=== PATIENT | male | born 1985 | race Native Hawaiian/Other Pacific Islander ===

== ENCOUNTER 2019-11-02 17:07 | Emergency (ER) | payer OTHER ==
[2019-11-02 17:25] VITALS: BP 134/78
--- NOTE | 2019-11-02 18:58 | Event Note ---
ED Screening Note Date of service: 11/02/19 Time: 18:57 ED Screening Note: Patient complains of left posterior rib pain after a fall 3 weeks ago from a ladder while at work This initial assessment/diagnostic orders/clinical plan/treatment(s) is/are subject to change based on patients health status, clinical progression and re- assessment by fellow clinical providers in the ED. Further treatment and workup at subsequent clinical providers discretion. Patient/guardian urged not to elope from the ED as their condition may be serious if not clinically assessed and managed. Initial orders include: X-ray
[2019-11-02] MEDS ORDERED: IBUPROFEN 600 MG TAB PO ONE (19:40)
[2019-11-02] MEDS ORDERED: ACETAMINOPHEN 500 MG TAB PO ONE (19:40)
--- NOTE | 2019-11-02 19:56 | XRay Report ---
LEFT RIBS WITH CHEST X-RAY 3 VIEWS INDICATION / CLINICAL INFORMATION: upper posterior/lateral pain after fall from ladde. COMPARISON: None available. FINDINGS: No significant skeletal abnormality. No evidence of a left-sided pneumothorax Signer Name: Carlton Heck MD FACR Signed: 11/02/2019 7:52 PM Workstation Name: [id number]
--- NOTE | 2019-11-02 21:07 | Emergency Department Report ---
ED General Adult HPI - General Chief complaint: Fall Stated complaint: RIB CAGE PAIN Time Seen by Provider: 11/02/19 18:55 Source: alligator hunter Mode of arrival: Ambulatory Limitations: Language Barrier - History of Present Illness Initial comments: Patient is a 34-year-old male with no past medical history presents to the ED with complaint of acute onset persistent severe left lateral rib pain after he fell off a ladder at work 3 weeks ago. Patient states that he has been taking [id number]-[id number] medication with no relief. Patient states that the pain has been persistent and especially with movement, deep inhalation, or palpation of the left lateral rib cage. Patient denies dizziness, syncope, hemoptysis, shortness of breath, chest pain, dizziness, cough, nausea and vomiting or fever and chills. Patient also denies head or neck injuries and back pain. MD Complaint: left rib pain -: Sudden, week(s) (3) Location: chest (left lateral rib cage) Radiation: non-radiation Severity scale (0 -10): 5 Quality: aching, sharp Consistency: constant Improves with: none Worsens with: movement Associated Symptoms: denies: confusion, chest pain, cough, diaphoresis, fever/chills, headaches, loss of appetite, malaise, nausea/vomiting, seizure, shortness of breath, syncope, weakness Treatments Prior to Arrival: none - Related Data Previous Rx's Medication Instructions Recorded Last Taken Type Cyclobenzaprine [Flexeril] 10 mg PO Q8H PRN #21 tablet 11/02/19 Unknown Rx Naproxen 500 mg PO Q12H PRN #30 tablet 11/02/19 Unknown Rx Allergies Allergy/AdvReac Type Severity Reaction Status Date / Time No Known Allergies Allergy Unverified 11/02/19 17:17 ED Review of Systems ROS: Stated complaint: RIB CAGE PAIN Other details as noted in HPI Constitutional: denies: chills, fever Eyes: denies: eye pain, eye discharge, vision change ENT: denies: ear pain, throat pain Respiratory: denies: cough, shortness of breath, wheezing Cardiovascular: chest pain (left lateral rib pain). denies: palpitations Endocrine: no symptoms reported Gastrointestinal: denies: abdominal pain, nausea, diarrhea Genitourinary: denies: urgency, dysuria Musculoskeletal: denies: back pain, joint swelling, arthralgia Skin: denies: rash, lesions Neurological: denies: headache, weakness, paresthesias Psychiatric: denies: anxiety, depression Hematological/Lymphatic: denies: easy bleeding, easy bruising ED Past Medical Hx - Past Medical History Previous Medical History?: No - Surgical History Past Surgical History?: No - Social History Smoking Status: Never Smoker Substance Use Type: None - Medications Home Medications: Home Medications Medication Instructions Recorded Confirmed Last Taken Type Cyclobenzaprine [Flexeril] 10 mg PO Q8H PRN #21 tablet 11/02/19 Unknown Rx Naproxen 500 mg PO Q12H PRN #30 tablet 11/02/19 Unknown Rx ED Physical Exam - General Limitations: Language Barrier General appearance: alert, in no apparent distress - Head Head exam: Present: atraumatic, normocephalic, normal inspection - Eye Eye exam: Present: normal appearance, PERRL, EOMI Pupils: Present: normal accommodation - ENT ENT exam: Present: normal exam, normal orophraynx, mucous membranes moist, TM's normal bilaterally, normal external ear exam - Neck Neck exam: Present: normal inspection, full ROM. Absent: tenderness - Respiratory Respiratory exam: Present: normal lung sounds bilaterally, chest wall tenderness (Palpable reproducible left lateral rib tenderness). Absent: respiratory distress, wheezes, rales, rhonchi, stridor, accessory muscle use - Cardiovascular Cardiovascular Exam: Present: regular rate, normal rhythm, normal heart sounds. Absent: systolic murmur, diastolic murmur, rubs, gallop - GI/Abdominal GI/Abdominal exam: Present: soft, normal bowel sounds. Absent: tenderness, guarding, rebound, hyperactive bowel sounds, hypoactive bowel sounds - Extremities Exam Extremities exam: Present: normal inspection, full ROM, normal capillary refill - Back Exam Back exam: Present: normal inspection, full ROM. Absent: tenderness, CVA tenderness (R), CVA tenderness (L), muscle spasm, paraspinal tenderness - Neurological Exam Neurological exam: Present: alert, oriented X3, CN II-XII intact, normal gait, reflexes normal - Psychiatric Psychiatric exam: Present: normal affect, normal mood - Skin Skin exam: Present: warm, dry, intact, normal color. Absent: rash ED Course Vital Signs 11/02/19 17:24 Temperature 98 F Pulse Rate 84 Respiratory 18 Rate Blood Pressure 134/78 [Right] O2 Sat by Pulse 100 Oximetry ED Medical Decision Making - Radiology Data Radiology results: report reviewed, image reviewed Findings [facility] [address] [place] [address] XRay Report Signed Patient: ABRAHAM ROSSI MR#: [id number] : 1985 Acct:[id number] Age/Sex: 34 / M ADM Date: 11/02/19 Loc: ED Attending Dr: Ordering Physician: RK GUSMAN Date of Service: 11/02/19 Procedure(s): XR ribs UNI w PA chest 3+V LT Accession Number(s): [id number] cc: RK GUSMAN Fluoro Time In Minutes: LEFT RIBS WITH CHEST X-RAY 3 VIEWS INDICATION / CLINICAL INFORMATION: upper posterior/lateral pain after fall from ladde. COMPARISON: None available. FINDINGS: No significant skeletal abnormality. No evidence of a left-sided pneumothorax Signer Name: Carlton Heck MD FACR Signed: 11/02/2019 7:52 PM Workstation Name: [id number] Transcribed By: MS Dictated By: Carlton Heck MD Electronically Authenticated By: Carlton Heck MD Signed Date/Time: 11/02/191951 DD/ 50 TD/TT: - Medical Decision Making This is a 34-year-old male with no past medical history presents to the ED with complaint of acute onset persistent severe left lateral rib pain after he fell off a ladder at work 3 weeks ago. Patient states that he has been taking pbpb-bbt-[id number] medication with no relief. Patient states that the pain has been persistent and especially with movement, deep inhalation, or palpation of the left lateral rib cage. In the ED, patient is alert and oriented x3 and is not in distress. Patient was treated for pain in the ED and left rib x-ray with chest x-ray showed no acute rib fractures, pneumothorax, pleural effusion or any cardiopulmonary abnormalities. On reevaluation, patient's pain is well controlled medication. Patient will discharge home on pain medications and advised to follow-up with his primary care physician in 5 to 7 days for reevaluation or return to the ED immediately if symptoms get worse. - Differential Diagnosis rib fractures; pneumothorax; pleural effusion; chest contusion Critical care attestation.: If time is entered above; I have spent that time in minutes in the direct care of this critically ill patient, excluding procedure time. ED Disposition Clinical Impression: Contusion of rib on left side Qualifiers: Encounter type: initial encounter Qualified Code(s): S20.212A - Contusion of left front wall of thorax, initial encounter Contusion of chest wall Qualifiers: Encounter type: initial encounter Laterality: left Qualified Code(s): S20.212A - Contusion of left front wall of thorax, initial encounter Disposition: TO HOME OR SELFCARE Is pt being admited?: No Does the pt Need Aspirin: No Condition: Stable Instructions: Thoracic Pain (ED), Pulmonary Contusion (ED) Additional Instructions: The x-ray showed no acute rib fractures of pleural effusion or pneumothorax. Therefore take pain medications as needed with food, drink plenty of fluids and follow-up with your primary care physician in 5 to 7 days for reevaluation. Return to the ED immediately if symptoms get worse. Prescriptions: Cyclobenzaprine [Flexeril] 10 mg PO Q8H PRN #21 tablet PRN Reason: Muscle Spasm Naproxen 500 mg PO Q12H PRN #30 tablet PRN Reason: Pain , Severe (7-10) Referrals: [facility] [Provider Group] - 3-5 Days Time of Disposition: 21:08 Print Language: ALBANIAN
== END 2019-11-02 21:15 | disposition home or self-care (01) ==
LOC: ED 17:07
DX: S20.212A Contusion of left front wall of thorax, initial encounter (principal); Z79.899 Other long term (current) drug therapy; W11.XXXA Fall on and from ladder, initial encounter; Y93.89 Activity, other specified; Y92.89 Other specified places as the place of occurrence of the external cause; Y99.8 Other external cause status

== ENCOUNTER 2019-11-12 04:41 | Emergency (ER) | payer SELFPAY ==
[2019-11-12 05:32] LABS: Basophils # (Auto) 0.1 K/mm3 (0.0-0.1); Basophils % (Auto) 0.5 % (0.0-1.8); Eosinophils # (Auto) 0.2 K/mm3 (0.0-0.4); Hematocrit 46.1 % (35.5-45.6); Hemoglobin 15.9 gm/dl (11.8-15.2); Lymphocytes # (Auto) 2.9 K/mm3 (1.2-5.4); Lymphocytes % (Auto) 18.5 % (13.4-35.0); Mean Corpuscular HGB Conc 35 % (32-34); Mean Corpuscular Volume 91 fl (84-94); Monocytes # (Auto) 1.2 K/mm3 (0.0-0.8); Monocytes % (Auto) 7.9 % (0.0-7.3); Platelet Count 321 K/mm3 (140-440); Red Cell Distribution Width 13.8 % (13.2-15.2)
[2019-11-12 05:34] LABS: Alanine Aminotransferase 37 units/L (7-56); Albumin 4.7 g/dL (3.9-5); BUN/Creatinine Ratio 19; Blood Urea Nitrogen 15 mg/dL (9-20); Hemolysis Index 13
[2019-11-12 07:12] LABS: Bacteria,Urine 1+ /HPF (Negative); Bilirubin,Urine NEG (Negative); Blood,Urine NEG (Negative); Color,Urine Yellow (Yellow); Mucus,Urine FEW /HPF; Protein,Urine <15 mg/dL mg/dL (Negative); Urobilinogen,Urine < 2.0 mg/dL (<2.0)
--- NOTE | 2019-11-12 09:23 | Emergency Department Report ---
ED General Adult HPI - General Chief complaint: Abdominal Pain Stated complaint: ABDOMINAL PAIN PUI?: No Time Seen by Provider: 11/12/19 08:30 Source: patient, RN notes reviewed, old records reviewed Mode of arrival: Ambulatory Limitations: No Limitations - History of Present Illness Initial comments: The patient is a 34-year-old gentleman who is not known to myself previously, recently placed on Naprosyn for musculoskeletal pain/injury, presenting to the ER with a complaint of epigastric and bilateral upper quadrant pain with mild nausea. Symptoms present for the past day. He describes the pain is aching, burning and sharp. It increases with palpation, position, decreases with rest. No headache, neck pain, chest pain, exertional shortness of breath. No lower abdominal pain, no testicular pain, no urinary symptoms. No extremity weakness and or numbness. His symptoms were improved in the emergency room with supportive care and fluids. -: days(s) Location: abdomen Radiation: non-radiation Quality: other Consistency: other Improves with: other Worsens with: other - Related Data Previous Rx's Medication Instructions Recorded Last Taken Type Acetaminophen [Non-Aspirin Extra 500 mg PO Q6HR PRN #30 tablet 11/12/19 Unknown Rx Strength] Ondansetron [Zofran Odt] 4 mg PO Q8HR PRN #20 tab.rapdis 11/12/19 Unknown Rx Pantoprazole [Protonix TAB] 20 mg PO QDAY #30 tablet. 11/12/19 Unknown Rx Allergies Allergy/AdvReac Type Severity Reaction Status Date / Time No Known Allergies Allergy Unverified 11/02/19 17:17 ED Review of Systems ROS: Stated complaint: ABDOMINAL PAIN Other details as noted in HPI Constitutional: denies: fever, malaise Eyes: denies: eye discharge ENT: denies: congestion Respiratory: denies: shortness of breath Cardiovascular: denies: chest pain Gastrointestinal: abdominal pain, nausea. denies: vomiting, diarrhea, constipation, hematemesis, melena, hematochezia Genitourinary: denies: urgency, dysuria, testicular pain Musculoskeletal: denies: myalgia Neurological: denies: weakness Hematological/Lymphatic: denies: easy bleeding ED Past Medical Hx - Past Medical History Previous Medical History?: No - Surgical History Past Surgical History?: No - Social History Smoking Status: Never Smoker Substance Use Type: Alcohol - Medications Home Medications: Home Medications Medication Instructions Recorded Confirmed Last Taken Type Acetaminophen [Non-Aspirin Extra 500 mg PO Q6HR PRN #30 tablet 11/12/19 Unknown Rx Strength] Ondansetron [Zofran Odt] 4 mg PO Q8HR PRN #20 tab.rapsasha 11/12/19 Unknown Rx Pantoprazole [Protonix TAB] 20 mg PO QDAY #30 tablet. 11/12/19 Unknown Rx ED Physical Exam - General Limitations: No Limitations General appearance: alert, in no apparent distress - Head Head exam: Present: atraumatic, normocephalic - Eye Eye exam: Present: normal appearance, EOMI. Absent: nystagmus - ENT ENT exam: Present: normal exam, normal orophraynx, mucous membranes moist, normal external ear exam - Neck Neck exam: Present: normal inspection, full ROM. Absent: tenderness, meningismus - Respiratory Respiratory exam: Present: normal lung sounds bilaterally. Absent: respiratory distress - Cardiovascular Cardiovascular Exam: Present: regular rate, normal rhythm, normal heart sounds. Absent: bradycardia, tachycardia, irregular rhythm, systolic murmur, diastolic murmur, rubs, gallop - GI/Abdominal GI/Abdominal exam: Present: soft, tenderness, normal bowel sounds, other (There is epigastric and bilateral upper quadrant tenderness. There is a negative Clay sign. There is no right lower quadrant tenderness. There is a negative Rovsing sign there is a negative Clay sign,). Absent: distended, guarding, rebound, rigid, pulsatile mass - Rectal Rectal exam: Present: deferred - Extremities Exam Extremities exam: Present: normal inspection, full ROM, other (2+ pulses noted in the bilateral upper and lower extremities. There is no palpable cord. negative Homans sign. Muscular compartments are soft. The pelvis is stable.). Absent: pedal edema, calf tenderness - Back Exam Back exam: Present: normal inspection, full ROM. Absent: tenderness, CVA tenderness (R), CVA tenderness (L), paraspinal tenderness, vertebral tenderness - Neurological Exam Neurological exam: Present: alert, other (No facial droop. Tongue midline. Extraocular movements intact bilaterally. Facial sensation intact to light touch in V1, V2, V3 distribution bilaterally. 5 and a 5 strength in 4 extremities. Sensation intact to light touch in 4 extremities.). Absent: motor sensory deficit - Psychiatric Psychiatric exam: Present: anxious - Skin Skin exam: Present: warm, dry, intact, normal color. Absent: rash ED Course Vital Signs 11/12/19 04:45 Temperature 98.2 F Pulse Rate 77 Respiratory 20 Rate Blood Pressure 173/115 O2 Sat by Pulse 98 Oximetry ED Medical Decision Making - Lab Data Result diagrams: 11/12/19 05:01 11/12/19 05:01 Vital Signs 11/12/19 04:45 Temperature 98.2 F Pulse Rate 77 Respiratory 20 Rate Blood Pressure 173/115 O2 Sat by Pulse 98 Oximetry Lab Results 11/12/19 11/12/19 11/12/19 Range/Units 05:01 05:01 06:52 WBC 15.7 H (4.5-11.0) K/mm3 RBC 5.10 H (3.65-5.03) M/mm3 Hgb 15.9 H (11.8-15.2) gm/dl Hct 46.1 H (35.5-45.6) % MCV 91 (84-94) fl MCH 31 (28-32) pg MCHC 35 H (32-34) % RDW 13.8 (13.2-15.2) % Plt Count 321 (140-440) K/mm3 Lymph % (Auto) 18.5 (13.4-35.0) % [place] % (Auto) 7.9 H (0.0-7.3) % Eos % (Auto) 1.0 (0.0-4.3) % Baso % (Auto) 0.5 (0.0-1.8) % Lymph # 2.9 (1.2-5.4) K/mm3 [place] # 1.2 H (0.0-0.8) K/mm3 Eos # 0.2 (0.0-0.4) K/mm3 Baso # 0.1 (0.0-0.1) K/mm3 Seg Neutrophils % 72.1 H (40.0-70.0) % Seg Neutrophils # 11.3 H (1.8-7.7) K/mm3 Sodium 136 L (137-145) mmol/L Potassium 4.0 (3.6-5.0) mmol/L Chloride 93.4 L (98-107) mmol/L Carbon Dioxide 25 (22-30) mmol/L Anion Gap 22 mmol/L BUN 15 (9-20) mg/dL Creatinine 0.8 (0.8-1.3) mg/dL Estimated GFR > 60 ml/min BUN/Creatinine Ratio 19 % Glucose 153 H (75-100) mg/dL Calcium 11.0 H (8.4-10.2) mg/dL Magnesium (1.7-2.3) mg/dL Total Bilirubin 0.50 (0.1-1.2) mg/dL AST 28 (5-40) units/L ALT 37 (7-56) units/L Alkaline Phosphatase 89 (35-129) units/L Total Creatine Kinase (55-170) units/L Total Protein 8.1 (6.3-8.2) g/dL Albumin 4.7 (3.9-5) g/dL Albumin/Globulin Ratio 1.4 % Lipase (13-60) units/L Urine Color Yellow (Yellow) Urine Turbidity Slightly-cloudy (Clear) Urine pH 7.0 (5.0-7.0) Ur Specific [place]ancle[place] 1.011 (1.003-1.030) Urine Protein <15 mg/dl (Negative) mg/dL Urine Glucose (UA) Neg (Negative) mg/dL Urine Ketones Neg (Negative) mg/dL Urine Blood Neg (Negative) Urine Nitrite Neg (Negative) Urine Bilirubin Neg (Negative) Urine Urobilinogen < 2.0 (<2.0) mg/dL Ur Leukocyte Esterase Neg (Negative) Urine WBC (Auto) 4.0 (0.0-6.0) /HPF Urine RBC (Auto) 3.0 (0.0-6.0) /HPF Urine Bacteria (Auto) 1+ (Negative) /HPF Urine Mucus Few /HPF 08/15/20 Range/Units 09:34 WBC (4.5-11.0) K/mm3 RBC (3.65-5.03) M/mm3 Hgb (11.8-15.2) gm/dl Hct (35.5-45.6) % MCV (84-94) fl MCH (28-32) pg MCHC (32-34) % RDW (13.2-15.2) % Plt Count (140-440) K/mm3 Lymph % (Auto) (13.4-35.0) % [place] % (Auto) (0.0-7.3) % Eos % (Auto) (0.0-4.3) % Baso % (Auto) (0.0-1.8) % Lymph # (1.2-5.4) K/mm3 [place] # (0.0-0.8) K/mm3 Eos # (0.0-0.4) K/mm3 Baso # (0.0-0.1) K/mm3 Seg Neutrophils % (40.0-70.0) % Seg Neutrophils # (1.8-7.7) K/mm3 Sodium (137-145) mmol/L Potassium (3.6-5.0) mmol/L Chloride (98-107) mmol/L Carbon Dioxide (22-30) mmol/L Anion Gap mmol/L BUN (9-20) mg/dL Creatinine (0.8-1.3) mg/dL Estimated GFR ml/min BUN/Creatinine Ratio % Glucose (75-100) mg/dL Calcium (8.4-10.2) mg/dL Magnesium 2.20 (1.7-2.3) mg/dL Total Bilirubin (0.1-1.2) mg/dL AST (5-40) units/L ALT (7-56) units/L Alkaline Phosphatase (35-129) units/L Total Creatine Kinase 127 (55-170) units/L Total Protein (6.3-8.2) g/dL Albumin (3.9-5) g/dL Albumin/Globulin Ratio % Lipase 17 (13-60) units/L Urine Color (Yellow) Urine Turbidity (Clear) Urine pH (5.0-7.0) Ur Specific [place]anc[place]ve (1.003-1.030) Urine Protein (Negative) mg/dL Urine Glucose (UA) (Negative) mg/dL Urine Ketones (Negative) mg/dL Urine Blood (Negative) Urine Nitrite (Negative) Urine Bilirubin (Negative) Urine Urobilinogen (<2.0) mg/dL Ur Leukocyte Esterase (Negative) Urine WBC (Auto) (0.0-6.0) /HPF Urine RBC (Auto) (0.0-6.0) /HPF Urine Bacteria (Auto) (Negative) /HPF Urine Mucus /HPF - EKG Data -: EKG Interpreted by In EKG shows normal: sinus rhythm Rate: normal - EKG Data When compared to previous EKG there are: previous EKG unavailable 11/12/19 11:05 There is no prior EKG available for comparison. Sinus rhythm, 65 bpm, normal axis, high left ventricular voltage, QTC within normal limits, the EKG is not a STEMI. - Radiology Data Radiology results: pending, report reviewed, image reviewed Print Report Referring Physician: ALEENA ORTEGA Patient Name: ABRAHAM ROSSI Date of : 1985 Sex: Male Report Date: 2019-11-12 Report Status: Finalized Findings [facility] [address] [place] [address] Cat Scan Report Signed Patient: ABRAHAM ROSSI MR#: [id number] : 1985 Acct:[id number] Age/Sex: 34 / M ADM Date: 11/12/19 Loc: ED Attending Dr: Ordering Physician: ALEENA ORTEGA MD Date of Service: 11/12/19 Procedure(s): CT abdomen pelvis w con Accession Number(s): [id number] cc: ALEENA ORTEGA MD CT ABDOMEN AND PELVIS WITH CONTRAST HISTORY: Epigastric pain COMPARISON: None TECHNIQUE: Routine abdominal and pelvic CT exam performed following intravenous contrast administration. The patient received 100 mL IV Omnipaque [address] scans at this location are performed using CT dose reduction for ALARA by means of automated exposure control. FINDINGS: CT ABDOMEN: Lung Bases: No significant abnormality. Liver: No significant abnormality. Biliary: No significant abnormality. Spleen: No significant abnormality. Unenlarged. Pancreas: No significant abnormality. Adrenals: No significant abnormality. Kidneys: No significant abnormality. Lymphatics: No lymphadenopathy. Vascu lature: No significant abnormality. Bowel/Peritoneum: There is mild diffuse wall thickening and edema in the stomach suggesting gastritis. There is no obstruction, pneumatosis, or free air. Normal appendix. CT PELVIC: : No significant abnormality. Lymphatics: No lymphadenopathy. Osseous Structures: No aggressive appearing osseous lesions. Additional Findings: None IMPRESSION: 1. Findings suggestive of gastritis without associated free air or obstruction. Signer Name: Huey Greenwood MD Signed: 11/12/2019 10:42 AM Workstation Name: [id number] Transcribed By: FARZANA Dictated By: Huey Greenwood MD Electronically Authenticated By: Huey Greenwood MD Signed Date/Time: 11/12/19 1042 DD/ 1039 TD/TT: - Medical Decision Making Differential diagnosis, including but not limited to: Pancreatitis GERD, gastritis, hiatal hernia, colitis Assessment and plan: 34-year-old gentleman who appears to be uncomfortable with epigastric and bilateral upper quadrant abdominal pain, tenderness to the aforementioned, who is afebrile, with reassuring vital signs with the exception of elevated blood pressure, possibly secondary to pain. Please reference the [employer] clinical policy on hypertension which is not acutely sy mptomatic or decompensated. He was treated supportively, and felt improved. Laboratory studies are reviewed and appreciated, they are fairly unremarkable with the exception of elevated white blood cell count, which is most likely a stress reaction. CT scan of the abdomen pelvis suggested gastritis, and he felt improved on repeat examination, with improvement in abdominal tenderness. He has no active vomiting at this time, he is counseled to avoid alcohol, heavy/spicy foods, NSAIDs, he can be started on Tylenol, Zofran, proton pump inhibitor, he can follow-up with outpatient primary care, and/or gastroenterology. Return precautions are reviewed. The patient verbalizes understanding Critical care attestation.: If time is entered above; I have spent that time in minutes in the direct care of this critically ill patient, excluding procedure time. ED Disposition Clinical Impression: Upper abdominal pain Disposition: DC-01 TO HOME OR SELFCARE Is pt being admited?: No Does the pt Need Aspirin: No Condition: Stable Instructions: Gastritis (ED) Additional Instructions: Do not consume Motrin, ibuprofen, Naprosyn, Aleve, alcohol, heavy and spicy foods. Take the prescribed medications as needed and directed, drink plenty of water, and make certain to consume plenty of fiber, vegetables, and lean protein. CT scan of the abdomen pelvis suggested gastritis/stomach inflammation. This typically comes from excess stomach acid, and may be exacerbated by NSAIDs/Nap rosyn/Motrin/ibuprofen, heavy, spicy foods, and alcohol. Advance diet as tolerated, please follow-up with your primary care doctor or window machine operator within the next month. Return to the emergency room right away with new pain, worsening pain, migration of pain, projectile vomiting, change in mental status, confusion, inability to tolerate liquid feeds, new, worsened or different symptoms not present on the initial emergency room evaluation. Do not take metformin medication for the next 2 days, if patient takes this medication No consuma Motrin, ibuprofeno, Naprosyn, Aleve, alcohol, comidas pesadas y picantes. [place] los medicamentos recetados segn sea necesario y se le indique, janice ish agua y asegrese de consumir ish fibra, verduras y protenas magras. La tomografa computarizada de la pelvis del abdomen sugiri gastritis / inflamacin del estmago. Por lo general, esto proviene del exceso de cido del estmago y puede verse agravado por MARSHAL / Naprosyn / Motrin / ibuprofeno, alimentos pesados ??y picantes y alcohol. Dieta avanzada segn la tolerancia; consulte con pino mdico de atencin primaria o gastroenterlogo sharee el prximo mes. Regrese a la rose de emergencias de inmediato con dolor nuevo, empeoramiento del dolor, migracin del dolor, vmitos en proyectil, cambio en el estado mental, confusin, incapacidad para tolerar alimentos lquidos, sntomas nuevos, empeorados o diferentes que no estn presentes en la evaluacin inicial de la rose de emergencias. No tome metformina sharee los prximos 2 yip, si el paciente donna lilia medicamento. Referrals: SUSY MURPHY MD [Staff Physician] - 3-5 Days [facility] [Provider Group] - 3-5 Days Print Language: RUSSIAN
[2019-11-12] MEDS ORDERED: ONDANSETRON 4 MG/2 ML INJ IV ONE (09:33)
[2019-11-12] MEDS ORDERED: MORPHINE 4 MG/1 ML INJ IV ONE (09:33)
[2019-11-12] MEDS ORDERED: LACTATED RINGERS 1,000 ML IV ONE (09:34)
--- NOTE | 2019-11-12 10:46 | Cat Scan Report ---
CT ABDOMEN AND PELVIS WITH CONTRAST HISTORY: Epigastric pain COMPARISON: None TECHNIQUE: Routine abdominal and pelvic CT exam performed following intravenous contrast administrat ion. The patient received 100 mL IV Omnipaque [address] scans at this location are perform ed using CT dose reduction for ALARA by means of automated exposure control. FINDINGS: CT ABDOMEN: Lung Bases: No significant abnormality. Liver: No significant abnormality. Biliary: No significant abnormality. Spleen: No significant abnormality. Unenlarged. Pancreas: No significant abnormality. Adrenals: No significant abnormality. Kidneys: No significant abnormality. Lymphatics: No lymphadenopathy. Vasculature: No significant abnormality. Bowel/Peritoneum: There is mild diffuse wall thickening and edema in the stomach suggesting gastritis . There is no obstruction, pneumatosis, or free air. Normal appendix. CT PELVIC: : No significant abnormality. Lymphatics: No lymphadenopathy. Osseous Structures: No aggressive appearing osseous lesions. Additional Findings: None IMPRESSION: 1. Findings suggestive of gastritis without associated free air or obstruction. Signer Name: Huey Greenwood MD Signed: 11/12/2019 10:42 AM Workstation Name: [id number]
[2019-11-12] MEDS ORDERED: SUCRALFATE 1 GM/10 ML ORAL LIQD PO ONE (11:02)
[2019-11-12] MEDS ORDERED: FAMOTIDINE 20 MG TAB PO ONE (11:02)
[2019-11-12 11:45] VITALS: BP 132/74
== END 2019-11-12 11:46 | disposition home or self-care (01) ==
LOC: ED 04:41
DX: R10.11 Right upper quadrant pain (principal); R10.12 Left upper quadrant pain
CPT/HCPCS: 36415; 74177; 80053; 81001; 82550; 83690; 83735; 85025; 93005; 96361; 96374; 96375; 99285; J2270; J2405; J7120; Q9967